=== PATIENT | female | born 1985 | race Caucasian/White ===

== ENCOUNTER 2021-07-20 17:01 | Emergency (ER) | payer BC ==
[2021-07-20 17:10] VITALS: BP 123/70; PULSE 89; O2SAT 98
--- NOTE | 2021-07-20 17:54 | ERPHSYRPT ---
- History of Present Illness Time Seen by Provider: 07/20/21 17:49 Source: patient Exam Limitations: no limitations Patient Subjective Stated Complaint: Pt states "I was recycling area and cleaning up and there was a lancet under a lid that poked me in my finger through my glove and it started to bleed and I have never had this happen before and I got nervous." Triage Nursing Assessment: Pt presented alert and oriented X 3, skin pwd pt ambulates with an upright steady gait, able to speak in clear full sentences. 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 No active bleeding. Minimal discomfort. Patient thoroughly cleaned it. Unknown source. Timing/Duration: hour(s) (1), sudden Severity: mild Associated Symptoms: denies symptoms Allergies/Adverse Reactions: No Known Drug Allergies Allergy (Verified 07/20/21 17:09) Home Medications: Letrozole 2.5 mg PO DAILY 07/20/21 [History] Hx Tetanus, Diphtheria Vaccination/Date Given: Yes Hx Influenza Vaccination/Date Given: No Hx Pneumococcal Vaccination/Date Given: No Immunizations Up to Date: Yes Travel Risk - International Travel Have you traveled outside of the country in past 3 weeks: No - Coronavirus Screening Are you exhibiting any of the following symptoms?: No Close contact with a COVID-19 positive Pt in past 14-21 Days: No - Vaccine Status Have you recieved a Covid-19 vaccination: No - Review of Systems Constitutional: No Symptoms Ears, Nose, & Throat: No Symptoms Respiratory: No Symptoms Cardiac: No Symptoms Abdominal/Gastrointestinal: No Symptoms Musculoskeletal: No Symptoms Neurological: No Symptoms - Past Medical History Pertinent Past Medical History: Yes Other Medical History: cancer - Past Surgical History Past Surgical History: Yes Other Surgical History: double massectomy. ovaries - Social History Smoking Status: Never smoker Exposure to second hand smoke: No Drug Use: none Patient Lives Alone: No - Female History Hx Last Menstrual Period: no more Hx Now: No - Nursing Vital Signs Nursing Vital Signs: Initial Vital Signs Temperature 97.8 F 07/20/21 17:05 Pulse Rate 89 07/20/21 17:05 Respiratory Rate 20 07/20/21 17:05 Blood Pressure 123/70 07/20/21 17:05 O2 Sat by Pulse Oximetry 98 07/20/21 17:05 Pain Scale Pain Intensity 0 - Physical Exam General Appearance: no apparent distress, alert Eye Exam: PERRL/EOMI Ears, Nose, Throat Exam: normal ENT inspection Neck Exam: normal inspection, non-tender, supple, full range of motion Respiratory Exam: normal breath sounds, lungs clear Cardiovascular Exam: regular rate/rhythm, normal heart sounds Back Exam: normal inspection Extremity Exam: normal inspection, normal range of motion, pelvis stable, other (No tenderness in the pulp of right index finger.) Neurologic Exam: alert, oriented x 3, cooperative Skin Exam: normal color SpO2 Interpretation: normal SpO2: 98 O2 Delivery: Room Air Ordered Tests: Active Orders 24 hr Category Date Time Status CBC W DIFF Stat Lab 07/20/21 17:37 Ordered CMP Stat Lab 07/20/21 17:37 Ordered - Progress Progress: unchanged Progress Note: 07/20/21 17:51 Patient is up-to-date with tetanus. Discussed with patient about PEP with antiviral and she does not want it at present. I have obtain baseline lab work including HIV and hepatitis panel for reference. She would follow-up outpatient. Counseled about PEP and spread/transmission with solid needle as hollow needle and she would think about it. 07/20/21 17:53 Counseled pt/family regarding: diagnosis, need for follow-up - Departure Departure Disposition: Home Clinical Impression: Needlestick injury accident Condition: Stable Critical Care Time: No Referrals: BERNADETTE SAWYER MD [ACTIVE STAFF] - Follow up/PCP as directed (Call tomorrow for evaluation) Additional Instructions: Keep it clean. Follow-up with primary care/employee health for reevaluation in the morning. Return to ER for increasing swelling redness, pain in the finger/fever chills etc.
[2021-07-20 18:05] LABS: Absolute Neutrophil Ct (ANC) 2.22 (1.4-6.9); Basophil (Absolute #) 0.02 (0-0.4); Eosinophil % 0.5 % (0.00-5.0); Eosinophil (Absolute #) 0.02 (0-0.5); Hematocrit 40.4 % (35-47); Hemoglobin 13.2 gm/dl (12.0-16.0); Lymphocyte (Absolute #) 1.51 (1.0-4.6); Lymphocytes % 36.6 % (24.0-44.0); Mean Cell Volume 89.6 fl (78-100); Mean Corpuscular Hemoglobin 29.3 pg (26-32); Mean Corpuscular Hgb Concent. 32.7 g/dl (32-36); Monocyte (Absolute #) 0.36 (0.0-1.3); Monocytes % 8.7 % (0.0-12.0); Neutrophil % 53.7 % (36.0-66.0); Platelet Count 183 K/mm3 (150-450); Red Blood Count 4.51 M/mm3 (4.1-5.4); Red Cell Distribution Width 12.8 % (11.5-14.0); White Blood Count 4.1 K/mm3 (4.0-10.5)
[2021-07-20 18:30] LABS: ALKALINE PHOSPHATASE 111 U/L (38-126); ANION GAP 15.1 MEQ/L (5-15); BLOOD UREA NITROGEN 12 mg/dL (7-17); CHLORIDE 103 mmol/L (98-107); Calcium 9.7 mg/dL (8.4-10.2); Carbon Dioxide 27 mmol/L (22-30); EST GLOMERULAR FILTRATION RATE > 60.0 ML/MIN; Glucose 92 mg/dL (74-106); Potassium 3.9 mmol/L (3.5-5.1); SGOT/AST 28 U/L (14-36); SGPT/ALT 19 U/L (0-35); SODIUM 142 mmol/L (137-145); Total Protein 8.6 g/dL (6.3-8.2)
[2021-07-22 08:28] LABS: HIV Screen 4th Generation wRfx Non Reactive (Non Reactive)
[2021-07-22 11:14] LABS: HBsAg Screen Negative (Negative); Hep A Ab, IgM Negative (Negative); Hep B Core Ab, IgM Negative (Negative)
[2021-07-22 12:47] LABS: Hep C Virus Ab <0.1 s/co ratio (0.0-0.9)
== END 2021-07-20 18:03 | disposition home or self-care (01) ==
LOC: ED 17:01
DX: S61.230A Puncture wound without foreign body of right index finger without damage to nail, initial encounter (principal); W26.8XXA Contact with other sharp object(s), not elsewhere classified, initial encounter; Y99.0 Civilian activity done for income or pay
CPT/HCPCS: 36415; 80053; 80074; 85025; 87389; 99283